=== PATIENT | male | born 1965 | race Native Hawaiian/Other Pacific Islander ===

== ENCOUNTER 2021-07-20 13:40 | Emergency (ER) | payer OTHER ==
[~2021-07-20] VITALS: Ht 172.7 cm; Wt 99.8 kg
[2021-07-20 14:00] VITALS: TEMP 97.9
[2021-07-20 16:11] VITALS: BP 148/80
== END 2021-07-20 16:12 | disposition home or self-care (01) ==
LOC: ED 13:40
PROC: 0HQGXZZ Repair Left Hand Skin, External Approach (ICD-10-PCS; principal; 2021-07-20)
PROC: 2W3KX1Z Immobilization of Left Finger using Splint (ICD-10-PCS; 2021-07-20)
DX: S61.217A Laceration without foreign body of left little finger without damage to nail, initial encounter (principal); S66.327A Laceration of extensor muscle, fascia and tendon of left little finger at wrist and hand level, initial encounter; W26.8XXA Contact with other sharp object(s), not elsewhere classified, initial encounter; Y92.89 Other specified places as the place of occurrence of the external cause
CPT/HCPCS: 99283; J2001